=== PATIENT | female | born 2000 | race Caucasian/White ===

== ENCOUNTER 2020-07-05 10:25 | Emergency (ER) | payer OTHER ==
[~2020-07-05] VITALS: Ht 180.3 cm; Wt 75.0 kg
[~2020-07-05 10:25] MED LIST: ACCUPRIL40 MG PO; MEDDOSEPAK OR; OMEPRAZOLE20 M1 PO; ONDANSETRON4 MG PO; SINGULAIR 10 MG10 MG PO; VENTOLIN HFA; ZPAK PO; ZYRTEC10 M2 PO
[2020-07-05] MEDS ORDERED: ZOFRAN4 MG/TAB PO (13:46)
[2020-07-05] MEDS ORDERED: IBUPROFEN600 MG PO (13:46)
[2020-07-05 13:50] VITALS: BP 119/64
== END 2020-07-05 13:50 | disposition home or self-care (01) | DRG 90 ==
LOC: ED 10:25
DX: S06.0X0A Concussion without loss of consciousness, initial encounter (principal); S29.011A Strain of muscle and tendon of front wall of thorax, initial encounter; J45.909 Unspecified asthma, uncomplicated; V49.40XA Driver injured in collision with unspecified motor vehicles in traffic accident, initial encounter; G43.909 Migraine, unspecified, not intractable, without status migrainosus

== ENCOUNTER 2022-06-08 05:07 | Emergency (ER) | payer SELFPAY ==
[2022-06-08] VITALS (44 sets, daily range): BP systolic 114–168; BP diastolic 73–112
[~2022-06-08] VITALS: Ht 180.3 cm; Wt 77.2 kg
[~2022-06-08 05:07] MED LIST changes: +IBUPROFEN600 MG PO; +ZOFRAN4 MG/TAB PO
[2022-06-08 06:31] LABS: MEAN CORPUSCULAR HGB 29.7 pG CALC (26.0-32.0); MEAN CORPUSCULAR HGB CONC 32.9 g/dL CAL (32.0-36.0); NEUT# 2.75 thou/uL (2.00-7.15); RED BLOOD COUNT 5.35 mill/uL (4.20-5.60); RED CELL DISTRI WIDTH 13.3 % (11.5-15.5)
[2022-06-08 06:38] LABS: URINE BILIRUBIN - DIPSTICK NEGATIVE (NEGATIVE); URINE BLOOD DIPSTICK NEGATIVE (NEGATIVE); URINE COLOR YELLOW; URINE GLUCOSE - DIPSTICK NEGATIVE (NEGATIVE); URINE KETONE NEGATIVE (NEGATIVE); URINE LEUK ESTERASE NEGATIVE (NEGATIVE); URINE PROTEIN - DIPSTICK NEGATIVE (NEG-TRACE); URINE SPECIFIC GRAVITY <=1.005; URINE UROBILINOGEN - DIPSTICK 0.2 E.U./dL (0.2)
[2022-06-08 06:39] LABS: HEMATOCRIT 48.3 % (37.0-47.0); HEMOGLOBIN 15.9 g/dl (12.0-16.0); MEAN CELL VOLUME 90.3 fL CALC (80.0-100.0)
[2022-06-08 06:55] LABS: ALBUMIN 4.8 g/dL (3.2-5.0); ALKALINE PHOSPHATASE 51 u/l (38-126); BUN 4 mg/dL (7-17); BUN/CREATININE RATIO 5 (12-20 (CALC)); CARBON DIOXIDE 25 mmol/l (22-30); CHLORIDE 111 mmol/l (95-108); CREATININE 0.7 mg/dL (0.5-1.0); ETHYL ALCOHOL 196 mg/dl (0-30); GFR FOR AFR.AMER. > 60 ML/MIN (>=60 (CALC)); GFR OTHER RACES > 60 ML/MIN (>=60 (CALC)); MAGNESIUM 2.3 mg/dL (1.6-2.3); SGOT/AST 29 u/l (14-36); TOTAL PROTEIN 8.2 g/dL (6.3-8.2)
[2022-06-08 06:56] LABS: ANION GAP 16 (6-22 (CALC)); BILIRUBIN, TOTAL 0.6 mg/dL (0.0-1.4); SODIUM 148 mmol/l (137-146)
[2022-06-08 07:02] LABS: URINE NITRITE - DIPSTICK NEGATIVE (Negative)
== END 2022-06-08 16:49 | DRG 605 ==
LOC: ED 05:07
PROVIDERS: Emergency Medicine
PROC: 0HQEXZZ Repair Left Lower Arm Skin, External Approach (ICD-10-PCS; principal; 2022-06-08)
DX: S61.512A Laceration without foreign body of left wrist, initial encounter (principal); F32.A Depression, unspecified; F10.129 Alcohol abuse with intoxication, unspecified; F19.10 Other psychoactive substance abuse, uncomplicated; J45.909 Unspecified asthma, uncomplicated; X78.9XXA Intentional self-harm by unspecified sharp object, initial encounter; Z20.822 Contact with and (suspected) exposure to COVID-19